=== PATIENT | female | born 1940 | race Caucasian/White ===

== ENCOUNTER 2020-05-17 13:30 | Inpatient (IN) ==
[~2020-05-17 13:30] MED LIST: Buffered Lidocaine 1% SYRIN 1 ml INTRADERM ONE; Dexamethasone IV 4 MG/ML VIAL 1 ml VIAL IV SLOW PU ONE; Famotidine IV 10 MG/ML 2 ml VIAL (20 mg) IV ONE; Lactated Ringers 1000 ml BAG 1,000 ML IV SCH
[2020-07-03] MEDS ORDERED: Buffered Lidocaine 1% SYRIN 1 ml INTRADERM ONE ×2 (06:00→08:08)
[2020-07-03] MEDS ORDERED: Lactated Ringers 1000 ml BAG 1,000 ML IV SCH (06:00)
[2020-07-03] MEDS ORDERED: Propofol 10 MG/ML 20 ML BTL ONE ×2 (08:07→12:41)
[2020-07-03] MEDS ORDERED: ceFAZolin 2 GM PREMIX 2 GM/50 ML BAG ONE (08:08)
[2020-07-03] MEDS ORDERED: Midazolam 2 mg/2 ml VIAL 1 mg/ml 2 ml VIAL (2 mg) ONE (08:45)
[2020-07-03] MEDS ORDERED: Rocuronium 50 mg VIAL 10 mg/ml 5 ml VIAL (50 mg) ONE ×2 (09:10→11:32)
[2020-07-03] MEDS ORDERED: fentaNYL 100 mcg/2 ml 50 MCG/ML VIAL ONE ×2 (09:10→13:30)
[2020-07-03] MEDS ORDERED: Lidocaine 2% PF 5 ML VIAL ONE (09:12)
[2020-07-03] MEDS ORDERED: HYDROmorphone 1 MG/1 ML SYRINGE ONE (10:00)
[2020-07-03] MEDS ORDERED: Dexamethasone IV 4 MG/ML VIAL 1 ml VIAL ONE (10:39)
[2020-07-03] MEDS ORDERED: Ondansetron 4 mg VIAL 2 MG/ML 2 ml VIAL ONE (10:39)
[2020-07-03] MEDS ORDERED: Phenylephrine IV 10 MG/ML 1 ml VIAL ONE (10:39)
[2020-07-03] MEDS ORDERED: EPHEDrine (Pressors) 50 MG/ML VIAL ONE (10:39)
[2020-07-03] MEDS ORDERED: ROPIVACAINE 5 MG/ML 30 ML BTL (0.5%) ONE (10:59)
[2020-07-03] MEDS ORDERED: diPHENhydraMINE IV 50 MG/ML 1 ml VIAL (BENADRYL) IV PRN ×2 (11:00→12:55)
[2020-07-03] MEDS ORDERED: Naloxone 0.4 mg VIAL 0.4 mg/ml 1 ml VIAL IV PRN (11:00)
[2020-07-03] MEDS ORDERED: DiMENhydriNATE IV 50 mg/ml 1 ml VIAL IV PUSH PRN (11:00)
[2020-07-03] MEDS ORDERED: Acetaminophen IV 1 GM/100ML 1,000 MG/100 ML VIAL IVPB ONE (11:00)
[2020-07-03] MEDS ORDERED: Lactulose 30 ml UDC PO PRN (12:55)
[2020-07-03] MEDS ORDERED: Ondansetron ODT 4 mg TAB 4 MG TAB PO PRN (12:55)
[2020-07-03] MEDS ORDERED: Ondansetron 4 mg VIAL 2 MG/ML 2 ml VIAL IV PRN (12:55)
[2020-07-03] MEDS ORDERED: diPHENhydraMINE 25 mg TAB PO PRN (12:55)
[2020-07-03] MEDS ORDERED: Morphine 2 MG/ML SYRINGE IV PRN (12:55)
[2020-07-03] MEDS ORDERED: Magnesium Hydroxide LIQ 30 ML UDC PO PRN (12:55)
[2020-07-03] MEDS ORDERED: Acetaminophen IV 1 GM/100ML 100 ML ONE (13:30)
[2020-07-03] MEDS: fentaNYL 100 mcg/2 ml 50 MCG/ML VIAL IV PRN ×3 (13:32→14:31)
[2020-07-03] MEDS: Lactated Ringers 1000 ml BAG 1,000 ML IV SCH (15:03)
[2020-07-03] MEDS: TAPENTADOL 50 MG PO PRN (15:11)
[2020-07-03] MEDS: Clindamycin 600 MG/D5W BAG 600 MG/50 ML BAG IV SCH (17:35)
[2020-07-03] MEDS: Magnesium Hydroxide LIQ 30 ML UDC PO SCH (21:15)
[2020-07-04] MEDS: Clindamycin 600 MG/D5W BAG 600 MG/50 ML BAG IV SCH ×2 (01:40→10:02)
[2020-07-04] MEDS: Lactated Ringers 1000 ml BAG 1,000 ML IV SCH (01:41)
[2020-07-04] MEDS: TAPENTADOL 50 MG PO PRN (04:29)
[2020-07-04 06:19] LABS: Hematocrit 26 % (35-47); Hemoglobin 8.8 g/dL (12.0-16.0); Mean Platelet Volume 7.5 fL (7.4-10.4); Platelet Count 312 10^3/uL (150-450)
[2020-07-04 06:41] LABS: BUN/Creatinine Ratio 21.1 (8-20); Calcium 8.4 mg/dL (8.6-10.3); EGFR African American 72.5 (>60); EGFR Non-African American 59.9 (>60); Potassium 3.8 mmol/L (3.5-5.0)
[2020-07-04] MEDS: Magnesium Hydroxide LIQ 30 ML UDC PO SCH ×2 (08:50→21:22)
[2020-07-04] MEDS: Vitamin THERAPEUTIC TAB PO SCH (08:51)
[2020-07-04 15:14] LABS: Hematocrit 26 % (35-47); Hemoglobin 8.8 g/dL (12.0-16.0)
[2020-07-05 05:04] LABS: Hematocrit 26 % (35-47); Hemoglobin 8.8 g/dL (12.0-16.0); Platelet Count 303 10^3/uL (150-450)
[2020-07-05 05:20] LABS: BUN/Creatinine Ratio 24.4 (8-20); Calcium 8.4 mg/dL (8.6-10.3); EGFR African American 72.5 (>60); EGFR Non-African American 59.9 (>60); Potassium 3.9 mmol/L (3.5-5.0)
[2020-07-05] MEDS: Vitamin THERAPEUTIC TAB PO SCH (08:58)
[2020-07-05] MEDS: Magnesium Hydroxide LIQ 30 ML UDC PO SCH (08:59)
[2020-07-05] MEDS ORDERED: Furosemide 20 mg/2 ml IV VIAL IV SLOW PU ONE (09:29)
[2020-07-05 12:03] VITALS: BP 121/42
[2020-07-05 13:37] LABS: BUN/Creatinine Ratio 24.1 (8-20); Calcium 8.2 mg/dL (8.6-10.3); EGFR African American 75.4 (>60); EGFR Non-African American 62.3 (>60); Potassium 3.6 mmol/L (3.5-5.0)
== END 2020-07-05 16:00 | disposition home health service (06) | DRG 470 ==
LOC: AA 07-03 08:28 → SSU 07-03 14:52
PROVIDERS: ADMIT Orthopaedic Surgery Adult Reconstructive Orthopaedic Surgery; ATTEND Orthopaedic Surgery Adult Reconstructive Orthopaedic Surgery

== ENCOUNTER 2021-01-08 08:59 | Inpatient (IN) ==
[~2021-01-08 08:59] MED LIST changes: -Dexamethasone IV 4 MG/ML VIAL 1 ml VIAL IV SLOW PU ONE; -Famotidine IV 10 MG/ML 2 ml VIAL (20 mg) IV ONE; +Lidocaine 2% PF 5 ML VIAL ONE; +Propofol 10 MG/ML 20 ML BTL ONE
[2021-01-08] MEDS ORDERED: DiMENhydriNATE IV 50 mg/ml 1 ml VIAL IV PUSH PRN (09:09)
[2021-01-08] MEDS ORDERED: fentaNYL 100 mcg/2 ml 50 MCG/ML VIAL IV PRN (09:09)
[2021-01-08] MEDS ORDERED: Naloxone 0.4 mg VIAL 0.4 mg/ml 1 ml VIAL IV PRN (09:09)
[2021-01-08] MEDS ORDERED: Ondansetron 4 mg VIAL 2 MG/ML 2 ml VIAL IV PRN ×2 (09:09→13:22)
[2021-01-08] MEDS ORDERED: oxyCODONE/Acetamin 5/325 mg TAB PO PRN (09:09)
[2021-01-08] MEDS ORDERED: ceFAZolin 2 GM in NS PREMIX 2 GM/100 ML BAG IVPB ONE (09:26)
[2021-01-08] MEDS ORDERED: Dexamethasone IV 4 MG/ML VIAL 1 ml VIAL ONE ×3 (09:26→12:29)
[2021-01-08] MEDS ORDERED: ROPIVACAINE 5 MG/ML 30 ML BTL (0.5%) ONE ×2 (10:11→11:18)
[2021-01-08] MEDS ORDERED: Midazolam 5 mg/5 ml VIAL 1 mg/ml 5 ml VIAL (5 mg) ONE (11:18)
[2021-01-08] MEDS ORDERED: fentaNYL 100 mcg/2 ml 50 MCG/ML VIAL ONE (11:18)
[2021-01-08] MEDS ORDERED: Ketamine HCL 50 mg/ml 10 ml VIAL (500 MG) ONE (12:17)
[2021-01-08] MEDS ORDERED: Acetaminophen IV 1 GM/100ML 100 ML IV ONE (12:29)
[2021-01-08] MEDS ORDERED: Ondansetron 4 mg VIAL 2 MG/ML 2 ml VIAL ONE (12:29)
[2021-01-08] MEDS ORDERED: EPHEDrine (Pressors) 50 MG/ML VIAL ONE (12:33)
[2021-01-08] MEDS ORDERED: Lactulose 30 ml UDC PO PRN (13:22)
[2021-01-08] MEDS ORDERED: diPHENhydraMINE IV 50 MG/ML 1 ml VIAL (BENADRYL) IV PRN (13:22)
[2021-01-08] MEDS ORDERED: Ondansetron ODT 4 mg TAB 4 MG TAB PO PRN (13:22)
[2021-01-08] MEDS ORDERED: Morphine 2 MG/ML SYRINGE IV PRN (13:22)
[2021-01-08] MEDS ORDERED: Magnesium Hydroxide LIQ 30 ML UDC PO PRN (13:22)
[2021-01-08] MEDS ORDERED: diPHENhydraMINE 25 mg TAB PO PRN (13:22)
[2021-01-08] MEDS ORDERED: ceFAZolin 1 GM ADVAN 1 GM in NS 0.9% 50 ML 50 ML IVPB SCH (14:00)
[2021-01-08] MEDS: Lactated Ringers 1000 ml BAG 1,000 ML IV SCH (17:57)
[2021-01-08] MEDS: ceFAZolin 1 GM ADVAN 1 GM in NS 0.9% 50 ML 50 ML IVPB SCH (18:30)
[2021-01-08] MEDS: Magnesium Hydroxide LIQ 30 ML UDC PO SCH (21:56)
[2021-01-09] MEDS: ceFAZolin 1 GM ADVAN 1 GM in NS 0.9% 50 ML 50 ML IVPB SCH ×2 (02:12→10:44)
[2021-01-09] MEDS: Lactated Ringers 1000 ml BAG 1,000 ML IV SCH (06:11)
[2021-01-09 06:49] LABS: Hematocrit 27 % (35-47); Hemoglobin 9.2 g/dL (12.0-16.0); Mean Platelet Volume 7.6 fL (7.4-10.4); Platelet Count 272 10^3/uL (150-450)
[2021-01-09 07:13] LABS: Calcium 8.4 mg/dL (8.6-10.3); EGFR African American 67.2 (>60); EGFR Non-African American 55.5 (>60); Potassium 3.5 mmol/L (3.5-5.0)
[2021-01-09] MEDS: Magnesium Hydroxide LIQ 30 ML UDC PO SCH (08:53)
[2021-01-09] MEDS ORDERED: Vitamin THERAPEUTIC TAB PO SCH (09:00)
[2021-01-09 11:45] VITALS: BP 135/76
== END 2021-01-09 13:52 | disposition home or self-care (01) | DRG 470 ==
LOC: AA 08:59 → SSU 17:36
PROVIDERS: ADMIT Orthopaedic Surgery Adult Reconstructive Orthopaedic Surgery; ATTEND Orthopaedic Surgery Adult Reconstructive Orthopaedic Surgery

== ENCOUNTER 2023-10-09 15:29 | Inpatient (IN) ==
[2023-10-09 16:56] LABS: ABS Basophils 0.1 10^3/uL (0.0-0.1); ABS Monocytes 1.2 10^3/uL (0.0-0.9); ABS Neutrophils 4.1 10^3/uL (1.5-7.6); ABS Nucleated RBC 0.01 10^3/ul; Hematocrit 36.1 % (35-45); Hemoglobin 12.2 g/dL (11.5-14.3); Lymphocyte % 14.9 %; Mean Corpuscular Hemoglobin 32.9 pg (27-33); Mean Corpuscular Hgb Conc 33.8 g/dL (31-36); Mean Corpuscular Volume 97.3 fL (80-97); Mean Platelet Volume 7.1 fL (7.5-11.2); Nucleated Red Blood Cells % 0.1 %/100WBC (0.0-0.8); Platelet Count 265 10^3/uL (150-450); Red Blood Count 3.71 10^6/uL (3.63-4.92); White Blood Count 6.4 10^3/uL (3.8-11.8)
[2023-10-09 17:05] LABS: Activated Partial Thrombo Time 27.2 seconds (26.0-38.0); INR 1.02 (0.83-1.13)
[2023-10-09 17:19] LABS: Albumin 4.8 g/dL (3.2-5.2); Albumin/Globulin Ratio 2.4 (1-3); C Reactive Protein 1.08 mg/L (<8.01); Calcium 9.8 mg/dL (8.6-10.3); Potassium 3.2 mmol/L (3.5-5.0); Total Bilirubin 0.7 mg/dL (0.2-1.0); Total Protein 6.8 g/dL (6.4-8.9)
[2023-10-09] MEDS: Lactated Ringers 1000 ml BAG 1,000 ML IV ONE ×2 (17:45→19:47)
[2023-10-09] MEDS: Ondansetron 4 mg VIAL 2 MG/ML 2 ml VIAL IV ONE (17:46)
[2023-10-09 18:00] LABS: Creatinine, Serum 0.83 mg/dL (0.51-0.95)
[2023-10-09 18:17] LABS: High Sensitivity Troponin 1 Hr 11 pg/mL (<15)
[2023-10-09 18:48] LABS: Magnesium 1.5 mg/dL (1.9-2.7)
[2023-10-09] MEDS: Iodixanol (CONTRAST) 320 MG/ML 100 ML SDV IV ONE (19:25)
[2023-10-09] MEDS: Magnesium Sulfate 2 gm BAG 2 GM/50 ML BAG IVPB ONE (19:47)
[2023-10-09] MEDS: Potassium Chlor 20 meq TAB.ER PO ONE (19:47)
[2023-10-09 20:25] LABS: Urine Appearance Turbid; Urine Bilirubin Negative (Negative); Urine Blood Trace (Negative); Urine Color Light-Yellow; Urine Glucose Negative (Negative); Urine Ketones 1+ (Negative); Urine Nitrite Negative (Negative); Urine Protein Trace (Negative); Urine Specific Gravity 1.045 (1.002-1.030); Urine Urobilinogen Negative (Negative); Urine pH 6.5 (5.0-8.0)
[2023-10-09] MEDS: cefTRIAXone 1 gm/50 mL D5W 1 GM/50 ML BAG IV ONE (20:45)
[2023-10-09 20:46] LABS: Urine Bacteria 1+ /HPF (Absent); Urine Red Blood Cell 3+(>10/hpf) /HPF (0-Trace); Urine Squamous Epithelial Cell Present /HPF (Absent); Urine White Blood Cell 3+(>20/hpf) /HPF (0-Trace)
[2023-10-09] MEDS ORDERED: Zosyn per Pharmacy NOTE FOLLOW UP SCH (22:00)
[2023-10-09] MEDS: Piperacillin/Tazobac 3.375 BAG 3.375 GM/100 ML BAG IV ONE (22:22)
[2023-10-09 22:23] LABS: Osmolality Serum 265 mOsm/kg (275-295)
[2023-10-09 23:00] LABS: TSH Ultra Thyroid Stim Horm 1.17 mcIU/mL (0.34-5.60)
[2023-10-09 23:58] LABS: Anion Gap 7 mmol/L (2-16); Blood Urea Nitrogen 15 mg/dL (6-24); CO2 Carbon Dioxide 30 mmol/L (22-32); Calcium 8.5 mg/dL (8.6-10.3); Chloride 88 mmol/L (101-111); Creatinine, Serum 0.72 mg/dL (0.51-0.95); Glucose 94 mg/dL (70-100); Magnesium 1.8 mg/dL (1.9-2.7); Potassium 3.2 mmol/L (3.5-5.0); Sodium 125 mmol/L (135-145); eGFR CKD-EPI 81.9 (>60)
[2023-10-10] MEDS: Enoxaparin 40 MG/0.4 ML SYR SUBCUT SCH (00:16)
[2023-10-10] MEDS: NS 0.9% 1000 ml BAG 1,000 ML IV SCH (00:18)
[2023-10-10 00:48] LABS: Folate > 20.00 ng/mL (5.90-24.80)
[2023-10-10 00:49] LABS: Vitamin B12 396 pg/mL (180-914)
[2023-10-10] MEDS ORDERED: ZOSYN 3.375 GM Q8H per EXTENDED INFUSION IV SCH (02:30)
[2023-10-10] MEDS: Magnesium Sulfate 2 gm BAG 2 GM/50 ML BAG IVPB ONE ×2 (06:04→12:59)
[2023-10-10 06:39] LABS: ABS Basophils 0.2 10^3/uL (0.0-0.1); ABS Nucleated RBC 0.01 10^3/ul; Hemoglobin 11.3 g/dL (11.5-14.3); Lymphocyte % 15.5 %; Mean Corpuscular Hemoglobin 33.3 pg (27-33); Mean Corpuscular Hgb Conc 34.1 g/dL (31-36); Mean Corpuscular Volume 97.4 fL (80-97); Mean Platelet Volume 7.1 fL (7.5-11.2); Nucleated Red Blood Cells % 0.1 %/100WBC (0.0-0.8); Platelet Count 228 10^3/uL (150-450); Red Blood Count 3.39 10^6/uL (3.63-4.92); Red Cell Distribution Width 12.4 % (12-17); White Blood Count 6.2 10^3/uL (3.8-11.8)
[2023-10-10 07:09] LABS: Calcium 8.6 mg/dL (8.6-10.3); Creatinine, Serum 0.74 mg/dL (0.51-0.95); Magnesium 1.6 mg/dL (1.9-2.7); Potassium 3.2 mmol/L (3.5-5.0); eGFR CKD-EPI 79.2 (>60)
[2023-10-10] MEDS: KCL 20 MEQ/100 ML IVPREMIX 20 MEQ/100 ML BAG IV SCH (07:14)
[2023-10-10 07:38] LABS: Urine Osmo 593 mOsm/kg (150-1150)
[2023-10-10] MEDS: KCL 20 MEQ/100 ML IVPREMIX 20 MEQ/100 ML BAG IV ONE (11:48)
[2023-10-10] MEDS: cefTRIAXone 1 gm/50 mL D5W 1 GM/50 ML BAG IV SCH (21:36)
[2023-10-10] MEDS ORDERED: Zosyn per Pharmacy NOTE FOLLOW UP SCH (22:00)
[2023-10-10] MEDS: Piperacillin/Tazobac 3.375 BAG 3.375 GM/100 ML BAG IV ONE (23:04)
[2023-10-11] MEDS: ZOSYN 3.375 GM Q8H per EXTENDED INFUSION IV SCH (03:55)
[2023-10-11 07:40] LABS: ALT 14 U/L (7-52); Albumin 3.9 g/dL (3.2-5.2); Albumin/Globulin Ratio 2.1 (1-3); Alkaline Phosphatase 59 U/L (35-149); Anion Gap 8 mmol/L (2-16); Blood Urea Nitrogen 12 mg/dL (6-24); CO2 Carbon Dioxide 26 mmol/L (22-32); Calcium 8.5 mg/dL (8.6-10.3); Chloride 90 mmol/L (101-111); Creatinine, Serum 0.86 mg/dL (0.51-0.95); Globulin 1.9 g/dL (2-4); Glucose 80 mg/dL (70-100); Sodium 124 mmol/L (135-145); Total Bilirubin 0.5 mg/dL (0.2-1.0); Total Protein 5.8 g/dL (6.4-8.9); eGFR CKD-EPI 66.2 (>60)
[2023-10-11] MEDS: NS 0.9% 1000 ml BAG 1,000 ML IV SCH (08:41)
[2023-10-11 09:04] LABS: Potassium Redraw 3.9 mmol/L (3.5-5.0)
[2023-10-11 09:35] LABS: Urine Appearance Clear; Urine Bilirubin Negative (Negative); Urine Blood Negative (Negative); Urine Color Colorless; Urine Glucose Negative (Negative); Urine Ketones Negative (Negative); Urine Nitrite Negative (Negative); Urine Protein Negative (Negative); Urine Specific Gravity 1.008 (1.002-1.030); Urine Urobilinogen Negative (Negative); Urine pH 6.5 (5.0-8.0)
[2023-10-11 16:32] LABS: Urine Osmo 344 mOsm/kg (150-1150)
[2023-10-12 09:54] LABS: Albumin 3.4 g/dL (3.2-5.2); Albumin/Globulin Ratio 2.6 (1-3); Calcium 7.8 mg/dL (8.6-10.3); Creatinine, Serum 0.9 mg/dL (0.51-0.95); Globulin 1.3 g/dL (2-4); Potassium 3.5 mmol/L (3.5-5.0); Total Bilirubin 0.5 mg/dL (0.2-1.0); Total Protein 4.7 g/dL (6.4-8.9); eGFR CKD-EPI 62.6 (>60)
[2023-10-12 10:47] LABS: C Reactive Protein 1.73 mg/L (<8.01)
[2023-10-12] MEDS: Ure-Na 15 GM POWD.PACK PO SCH (12:42)
[2023-10-12] MEDS: Potassium Chlor 20 meq TAB.ER PO ONE (14:52)
[2023-10-13 06:18] LABS: ABS Basophils 0.1 10^3/uL (0.0-0.1); ABS Lymphocytes 1.4 10^3/uL (1.0-4.8); ABS Monocytes 0.7 10^3/uL (0.0-0.9); ABS Neutrophils 1.3 10^3/uL (1.5-7.6); ABS Nucleated RBC 0.01 10^3/ul; Eosinophil % 1.2 %; Hemoglobin 10.7 g/dL (11.5-14.3); Lymphocyte % 40.9 %; Mean Corpuscular Hemoglobin 34.1 pg (27-33); Mean Corpuscular Hgb Conc 35.6 g/dL (31-36); Mean Corpuscular Volume 95.8 fL (80-97); Mean Platelet Volume 6.9 fL (7.5-11.2); Nucleated Red Blood Cells % 0.2 %/100WBC (0.0-0.8); Platelet Count 207 10^3/uL (150-450); Red Blood Count 3.14 10^6/uL (3.63-4.92); Red Cell Distribution Width 12.6 % (12-17); White Blood Count 3.5 10^3/uL (3.8-11.8)
[2023-10-13 06:48] LABS: Calcium 8.2 mg/dL (8.6-10.3); Creatinine, Serum 0.79 mg/dL (0.51-0.95); Magnesium 1.4 mg/dL (1.9-2.7); Potassium 3.9 mmol/L (3.5-5.0); eGFR CKD-EPI 73.3 (>60)
[2023-10-13] MEDS: Magnesium Sulf 4 GM/100 ML IV 4,000 MG/100 ML BAG IVPB ONE (08:48)
[2023-10-13 15:16] LABS: Anaplasma phagocytophilum Negative (Negative); B. miyamotoi PCR, B Negative (Negative); Babesia divergens/MO-1 Negative (Negative); Babesia ducani Negative (Negative); Ehrlichia chaffeensis Negative (Negative); Ehrlichia ewingii/canis Negative (Negative); Ehrlichia muris eauclairensis Negative (Negative)
[2023-10-13] MEDS: DOXYcycline 100 MG in NS 0.9% 250 ml 250 ML IVPB SCH (18:06)
[2023-10-14 06:16] LABS: ABS Monocytes 0.4 10^3/uL (0.0-0.9); ABS Neutrophils 1.3 10^3/uL (1.5-7.6); Eosinophil % 1.1 %; Hematocrit 29.2 % (35-45); Hemoglobin 10.4 g/dL (11.5-14.3); Lymphocyte % 34.3 %; Mean Corpuscular Hemoglobin 33.9 pg (27-33); Mean Corpuscular Hgb Conc 35.6 g/dL (31-36); Mean Corpuscular Volume 95.2 fL (80-97); Mean Platelet Volume 7.3 fL (7.5-11.2); Platelet Count 209 10^3/uL (150-450); Red Blood Count 3.07 10^6/uL (3.63-4.92); Red Cell Distribution Width 12.2 % (12-17); White Blood Count 2.8 10^3/uL (3.8-11.8)
[2023-10-14 06:32] LABS: Calcium 8.1 mg/dL (8.6-10.3); Creatinine, Serum 0.65 mg/dL (0.51-0.95); Potassium 3.5 mmol/L (3.5-5.0); eGFR CKD-EPI 86.2 (>60)
[2023-10-14 08:24] LABS: Magnesium 1.9 mg/dL (1.9-2.7)
[2023-10-14] MEDS: Ure-Na 15 GM POWD.PACK PO SCH (10:04)
[2023-10-14] MEDS: NS 0.9% 500 ml BAG 500 ML IV ONE (10:41)
[2023-10-14 15:08] LABS: Body Fluid Source Cerebral Spinal
[2023-10-14 15:26] LABS: Body Fluid Appearance Clear; Body Fluid Color Colorless; CSF Tube # 4
[2023-10-14 15:56] LABS: CSF Glucose 54 mg/dL (40-70)
[2023-10-14 16:40] LABS: Body Fluid Mono 31 %; Body Fluid Total Cells Counted 200
[2023-10-14 16:46] LABS: CSF Body Fluid WBC 1173 /mcL
[2023-10-14 22:33] LABS: Urine Appearance Clear; Urine Bilirubin Negative (Negative); Urine Blood Negative (Negative); Urine Color Colorless; Urine Glucose Negative (Negative); Urine Ketones Trace (Negative); Urine Nitrite Negative (Negative); Urine Protein Negative (Negative); Urine Specific Gravity 1.011 (1.002-1.030); Urine Urobilinogen Negative (Negative)
[2023-10-15] MEDS ORDERED: Vancomycin per Pharmacy 1 EA NOTE FOLLOW UP SCH (08:00)
[2023-10-15 08:08] LABS: ABS Lymphocytes 0.7 10^3/uL (1.0-4.8); ABS Monocytes 0.4 10^3/uL (0.0-0.9); ABS Neutrophils 1.8 10^3/uL (1.5-7.6); Eosinophil % 0.3 %; Hemoglobin 10.4 g/dL (11.5-14.3); Lymphocyte % 24.3 %; Mean Corpuscular Hemoglobin 33.3 pg (27-33); Mean Corpuscular Hgb Conc 34.6 g/dL (31-36); Mean Corpuscular Volume 96.2 fL (80-97); Mean Platelet Volume 7.1 fL (7.5-11.2); Nucleated Red Blood Cells % 0.1 %/100WBC (0.0-0.8); Platelet Count 206 10^3/uL (150-450); Red Blood Count 3.12 10^6/uL (3.63-4.92); Red Cell Distribution Width 12.4 % (12-17); White Blood Count 2.9 10^3/uL (3.8-11.8)
[2023-10-15 08:43] LABS: Calcium 8.5 mg/dL (8.6-10.3); Creatinine, Serum 0.66 mg/dL (0.51-0.95); Potassium 3.3 mmol/L (3.5-5.0); eGFR CKD-EPI 85.9 (>60)
[2023-10-15] MEDS: cefTRIAXone 2 gm/50 mL D5W 2 GM/50 ML BAG IV SCH (09:22)
[2023-10-15] MEDS: Acyclovir IV 650 MG in NS 0.9% 100 ml BAG 100 ML IVPB SCH (09:51)
[2023-10-15] MEDS: Ampicillin ADVAN 2 GM in NS 0.9% 100 ml BAG 100 ML IVPB SCH ×2 (12:02→12:04)
[2023-10-15] MEDS: Vancomycin 1,500 MG in NS 0.9% 250 ml 250 ML IVPB ONE (12:10)
[2023-10-15] MEDS ORDERED: Ondansetron 4 mg VIAL 2 MG/ML 2 ml VIAL IV PRN (12:28)
[2023-10-15] MEDS: KCL 20 MEQ/100 ML IVPREMIX 20 MEQ/100 ML BAG IV SCH (13:35)
[2023-10-15] MEDS: Enoxaparin 40 MG/0.4 ML SYR SUBCUT SCH (15:04)
[2023-10-15 16:56] LABS: HSV 1 PCR, CSF Positive (Negative); HSV 2 PCR, CSF Negative (Negative)
[2023-10-15] MEDS: Gadoteridol (CONTRAST) 279.3 MG/ML 10 ML IV ONE (22:36)
[2023-10-16] MEDS: Vancomycin 1000 MG in NS 0.9% 250 ML IVPB SCH (00:17)
[2023-10-16 06:21] LABS: ABS Lymphocytes 1.1 10^3/uL (1.0-4.8); ABS Monocytes 0.6 10^3/uL (0.0-0.9); ABS Neutrophils 2.1 10^3/uL (1.5-7.6); Hematocrit 29.2 % (35-45); Hemoglobin 10.3 g/dL (11.5-14.3); Lymphocyte % 28.1 %; Mean Corpuscular Hemoglobin 33.4 pg (27-33); Mean Corpuscular Hgb Conc 35.2 g/dL (31-36); Mean Corpuscular Volume 95.1 fL (80-97); Mean Platelet Volume 7.2 fL (7.5-11.2); Platelet Count 231 10^3/uL (150-450); Red Blood Count 3.07 10^6/uL (3.63-4.92); Red Cell Distribution Width 12.3 % (12-17); White Blood Count 3.9 10^3/uL (3.8-11.8)
[2023-10-16 07:13] LABS: Albumin 3.4 g/dL (3.2-5.2); Albumin/Globulin Ratio 2.1 (1-3); Calcium 8.5 mg/dL (8.6-10.3); Creatinine, Serum 0.68 mg/dL (0.51-0.95); Globulin 1.6 g/dL (2-4); Potassium 3.4 mmol/L (3.5-5.0); Total Bilirubin 0.4 mg/dL (0.2-1.0); eGFR CKD-EPI 85.3 (>60)
[2023-10-16 12:52] LABS: CSF VDRL Negative (Negative)
[2023-10-16 19:29] LABS: B. burgdorferi PCR Negative (Negative); B. garinii/B. afzellii PCR Negative (Negative); Lyme Disease Source CSF
[2023-10-16 21:29] LABS: CSF West Nile Virus IgG Ab Negative (Negative); CSF West Nile Virus IgM Ab Negative (Negative)
[2023-10-17 09:53] LABS: Calcium 8.7 mg/dL (8.6-10.3); Creatinine, Serum 0.85 mg/dL (0.51-0.95); Potassium 3.2 mmol/L (3.5-5.0); eGFR CKD-EPI 67.1 (>60)
[2023-10-17] MEDS ORDERED: Vancomycin Trough Check NOTE FOLLOW UP ONE (11:30)
[2023-10-17] MEDS: Potassium Chlor 20 meq TAB.ER PO SCH (15:23)
[2023-10-17] MEDS: Ure-Na 15 GM POWD.PACK PO SCH (15:32)
[2023-10-17 18:39] LABS: Varicella Zoster Source CSF; Varicella Zoster Virus PCR Negative (Negative)
[2023-10-18 06:05] LABS: Calcium 8.7 mg/dL (8.6-10.3); Creatinine, Serum 1.09 mg/dL (0.51-0.95); Potassium 3.5 mmol/L (3.5-5.0); eGFR CKD-EPI 49.8 (>60)
[2023-10-18] MEDS: NS 0.9% 1000 ml BAG 1,000 ML IV SCH (14:27)
[2023-10-18] MEDS: Acyclovir IV 650 MG in NS 0.9% 100 ml BAG 100 ML IVPB SCH (20:56)
[2023-10-19 07:30] LABS: Calcium 8.3 mg/dL (8.6-10.3); Creatinine, Serum 1.19 mg/dL (0.51-0.95); Potassium 3.3 mmol/L (3.5-5.0); eGFR CKD-EPI 44.8 (>60)
[2023-10-19 07:57] LABS: Magnesium 1.7 mg/dL (1.9-2.7)
[2023-10-19] MEDS: Potassium Chlor 20 meq TAB.ER PO ONE (08:31)
[2023-10-19] MEDS: NS 0.9% 1000 ml BAG 0 ML IV SCH (08:38)
[2023-10-19] MEDS: NS 0.9% 1000 ml BAG 1,000 ML IV SCH (08:44)
[2023-10-19] MEDS: KCL 20 MEQ/100 ML IVPREMIX 20 MEQ/100 ML BAG IV SCH (10:54)
[2023-10-19] MEDS: Magnesium Sulfate 2 gm BAG 2 GM/50 ML BAG IVPB ONE (16:41)
[2023-10-20 05:19] LABS: ABS Basophils 0.1 10^3/uL (0.0-0.1); ABS Eosinophils 0.1 10^3/uL (0.0-0.5); ABS Lymphocytes 1.2 10^3/uL (1.0-4.8); ABS Monocytes 0.8 10^3/uL (0.0-0.9); ABS Neutrophils 4.4 10^3/uL (1.5-7.6); ABS Nucleated RBC 0.01 10^3/ul; Eosinophil % 1.6 %; Hematocrit 29.6 % (35-45); Hemoglobin 10.5 g/dL (11.5-14.3); Lymphocyte % 17.9 %; Mean Corpuscular Hgb Conc 35.4 g/dL (31-36); Mean Corpuscular Volume 96.1 fL (80-97); Nucleated Red Blood Cells % 0.1 %/100WBC (0.0-0.8); Platelet Count 348 10^3/uL (150-450); Red Blood Count 3.08 10^6/uL (3.63-4.92); Red Cell Distribution Width 13.1 % (12-17); White Blood Count 6.5 10^3/uL (3.8-11.8)
[2023-10-20 05:34] LABS: Urine Appearance Clear; Urine Bilirubin Negative (Negative); Urine Blood Negative (Negative); Urine Color Colorless; Urine Glucose Negative (Negative); Urine Ketones Negative (Negative); Urine Nitrite Negative (Negative); Urine Protein Negative (Negative); Urine Specific Gravity 1.006 (1.002-1.030); Urine Urobilinogen Negative (Negative)
[2023-10-20 05:37] LABS: Calcium 8.7 mg/dL (8.6-10.3); Creatinine, Serum 1.05 mg/dL (0.51-0.95); eGFR CKD-EPI 52.1 (>60)
[2023-10-20] MEDS: NS 0.9% 1000 ml BAG 1,000 ML IV SCH (15:27)
[2023-10-21 05:06] LABS: Hematocrit 30.1 % (35-45); Hemoglobin 10.6 g/dL (11.5-14.3); Mean Corpuscular Hemoglobin 33.7 pg (27-33); Mean Corpuscular Hgb Conc 35.1 g/dL (31-36); Mean Corpuscular Volume 96.1 fL (80-97); Mean Platelet Volume 6.8 fL (7.5-11.2); Platelet Count 364 10^3/uL (150-450); Red Blood Count 3.13 10^6/uL (3.63-4.92)
[2023-10-21 05:25] LABS: Calcium 8.8 mg/dL (8.6-10.3); Creatinine, Serum 0.96 mg/dL (0.51-0.95); Magnesium 1.8 mg/dL (1.9-2.7); Potassium 4.1 mmol/L (3.5-5.0)
[2023-10-21 06:02] LABS: ABS Basophils 0.1 10^3/uL (0.0-0.1); ABS Eosinophils 0.1 10^3/uL (0.0-0.5); ABS Lymphocytes 1.2 10^3/uL (1.0-4.8); ABS Monocytes 0.6 10^3/uL (0.0-0.9); ABS Neutrophils 2.9 10^3/uL (1.5-7.6); ABS Nucleated RBC 0.01 10^3/ul; Eosinophil % 2.7 %; Lymphocyte % 24.7 %; Nucleated Red Blood Cells % 0.1 %/100WBC (0.0-0.8)
[2023-10-21 06:21] VITALS: BP 127/82
[2023-10-21] MEDS: Magnesium Sulfate 2 gm BAG 2 GM/50 ML BAG IVPB ONE (07:51)
[2023-10-22 11:35] LABS: AGNA-1, CSF Negative (Negative); ANNA-1, CSF Negative (Negative); ANNA-2, CSF Negative (Negative); ANNA-3, CSF Negative (Negative); Amphiphysin Ab, CSF Negative (Negative); CRMP-5-IgG, CSF Negative (Negative); IFA Notes None.; PCA-1, CSF Negative (Negative); PCA-2, CSF Negative (Negative); PCA-Tr, CSF Negative (Negative)
== END 2023-10-21 10:21 | DRG 91 ==
LOC: EDHOLD 15:29 → ED 15:29 → SUATTDRO 21:39 → MED 22:30
PROVIDERS: ADMIT Internal Medicine; ATTEND Student in an Organized Health Care Education/Training Program

== ENCOUNTER 2023-10-19 08:15 | Inpatient (IN) ==
[2023-10-21] MEDS ORDERED: Senna TAB 8.6 mg TAB PO PRN (12:56)
[2023-10-21] MEDS: Enoxaparin 40 MG/0.4 ML SYR SUBCUT SCH (14:48)
[2023-10-21] MEDS: NS 0.9% 1000 ml BAG 1,000 ML IV SCH (18:27)
[2023-10-21] MEDS: Acyclovir IV 650 MG in NS 0.9% 100 ml BAG 100 ML IVPB SCH (20:39)
[2023-10-23 06:52] LABS: Hematocrit 28.4 % (35-45); Hemoglobin 9.9 g/dL (11.5-14.3); Mean Corpuscular Hemoglobin 33.8 pg (27-33); Mean Corpuscular Hgb Conc 34.7 g/dL (31-36); Mean Corpuscular Volume 97.3 fL (80-97); Mean Platelet Volume 6.6 fL (7.5-11.2); Platelet Count 333 10^3/uL (150-450); Red Blood Count 2.92 10^6/uL (3.63-4.92); Red Cell Distribution Width 13.1 % (12-17); White Blood Count 4.8 10^3/uL (3.8-11.8)
[2023-10-23 07:36] LABS: Albumin 3.4 g/dL (3.2-5.2); Albumin/Globulin Ratio 2.1 (1-3); Calcium 8.4 mg/dL (8.6-10.3); Creatinine, Serum 0.79 mg/dL (0.51-0.95); Globulin 1.6 g/dL (2-4); Potassium 3.8 mmol/L (3.5-5.0); Total Bilirubin 0.4 mg/dL (0.2-1.0); eGFR CKD-EPI 73.3 (>60)
[2023-10-23 11:17] LABS: ABS Basophils 0.1 10^3/uL (0.0-0.1); ABS Eosinophils 0.2 10^3/uL (0.0-0.5); ABS Lymphocytes 1.4 10^3/uL (1.0-4.8); ABS Monocytes 0.6 10^3/uL (0.0-0.9); ABS Neutrophils 2.5 10^3/uL (1.5-7.6); ABS Nucleated RBC 0.01 10^3/ul; Eosinophil % 4.3 %; Lymphocyte % 28.9 %; Nucleated Red Blood Cells % 0.2 %/100WBC (0.0-0.8)
[2023-10-23 11:18] LABS: RBC Morphology Normal (Normal)
[2023-10-24] MEDS: Tapentadol 50 mg TAB (NF) PO PRN (22:46)
[2023-10-25 07:27] LABS: Calcium 8.8 mg/dL (8.6-10.3); Creatinine, Serum 0.8 mg/dL (0.51-0.95); eGFR CKD-EPI 72.2 (>60)
[2023-10-28 07:53] LABS: Albumin 3.9 g/dL (3.2-5.2); Albumin/Globulin Ratio 2.2 (1-3); Creatinine, Serum 0.77 mg/dL (0.51-0.95); Globulin 1.8 g/dL (2-4); Potassium 4.2 mmol/L (3.5-5.0); Total Bilirubin 0.5 mg/dL (0.2-1.0); Total Protein 5.7 g/dL (6.4-8.9); eGFR CKD-EPI 75.5 (>60)
[2023-10-28] MEDS: Pneumococcal 20-Valent Conj 0.5 ML SYR Vaccine IM ONE (09:16)
[2023-10-29 03:53] VITALS: BP 148/82
== END 2023-10-29 12:00 | disposition home or self-care (01) | DRG 98 ==
LOC: PMRU 10-21 10:21
PROVIDERS: ADMIT Physical Medicine & Rehabilitation; ATTEND Physical Medicine & Rehabilitation